=== PATIENT | female | born 1965 | race Caucasian/White ===

== ENCOUNTER 2016-11-04 17:15 | Emergency (ER) | payer MEDICAID ==
[~2016-11-04] VITALS: Ht 162.6 cm; Wt 75.0 kg
[~2016-11-04 17:15] MED LIST: AMO500 PO; GABA300C16 PO
[2016-11-04 19:01] VITALS: Ht 162.6 cm; Wt 75.0 kg
[2016-11-04] MEDS ORDERED: HYDR-906 PO (19:22)
[2016-11-04] MEDS ORDERED: IBUP-1542 PO (19:22)
--- NOTE | 2016-11-04 19:28 | ERD ---
ER Documentation Chief Complaint Date/Time DATE: 11/04/16 TIME: 19:25 Chief Complaint left breast lump/swelling pain x 2 days. HPI 31 year female presents here in emergency department for complaints of left breast pain and mass that she noticed yesterday. Patient describes the pain as throbbing pain, 6/10 scale worst upon touching the area. Patient denies any redness. Patient denies any nipple discharge. Patient denies any deformity in the breast area. Patient denies any fever or chills. Patient denies any trauma on the breast area. ROS All systems reviewed and are negative except as per history of present illness. Medications Home Meds Active Scripts Ibuprofen* (Motrin*) 600 Mg Tab, 600 MG PO Q6H Y for PAIN AND OR ELEVATED TEMP, #30 TAB Prov:ZION KOCH COMPENSATION CONSULTANT 11/04/16 Hydrocodone/Acetaminophen ([place] 5-325 Tablet) 1 Each Tablet, 1 TAB PO Q6H Y for SEVERE PAIN LEVEL 7-10, #20 TAB Prov:ZION KOCH COMPENSATION CONSULTANT 11/04/16 Amoxicillin* (Amoxicillin*) 500 Mg Cap, 500 MG PO TID for 10 Days, CAP Prov:JACQUELYN ROCHE DO 05/25/16 Gabapentin* (Gabapentin*) 300 Mg Capsule, 300 MG PO BID, #20 CAP Prov:BENTLEY SALDIVAR PA-C 03/07/15 Allergies Allergies: Coded Allergies: No Known Allergy (Unverified , 03/07/15) PMhx/Soc History of Surgery: Yes (TUBULIGATION) Anesthesia Reaction: No Hx Neurological Disorder: No Hx Respiratory Disorders: No Hx Cardiac Disorders: No Hx Psychiatric Problems: No Hx Miscellaneous Medical Probl: No Hx Alcohol Use: No Hx Substance Use: No Hx Tobacco Use: No FmHx Family History: No coronary disease, No diabetes, No other Physical Exam Vitals Vital Signs Date Time Temp Pulse Resp B/P Pulse Ox O2 Delivery O2 Flow Rate FiO2 11/04/16 19:01 98.9 81 20 110/71 97 Physical Exam GENERAL: The patient is well developed and appropriate for usual state of health, in no apparent distress. CHEST: Clear to auscultation bilaterally. There are no rales, wheezes or rhonchi. Noted left breast mass, on the left upper and lower quadrant, 5 cm x 6 cm, tender on palpation, no erythema, no nipple discharge noted in the left breast. No deformity. Right breast is normal, no palpable masses noted. Nontender on Palpation. HEART: Regular rate and rhythm. No murmurs, clicks, rubs or gallops. No S3 or S4. ABDOMEN: Soft, nontender and nondistended. Good bowel sounds. No rebound or guarding. No gross peritonitis. No gross organomegaly or masses. No Henao sign or McBurney point tenderness. BACK: No midline or flank tenderness. EXTREMITIES: Equal pulses bilaterally. There is no peripheral clubbing, cyanosis or edema. No focal swelling or erythema. Full range of motion. Grossly neurovascularly intact. NEURO: Alert and oriented. Cranial nerves 2-12 intact. Motor strength in all 4 extremities with 5/5 strength. Sensation grossly intact. Normal speech and gait. SKIN: There is no apparent rash or petechia. The skin is warm and dry. HEMATOLOGIC AND LYMPHATIC: There is no evidence of excessive bruising or lymphedema. No gross cervical, axillary, or inguinal lymphadenopathy. Procedures/MDM Medical decision making: Patient's left breast pain and mass nonspecific at this time, further evaluation by a mammogram for an ultrasound is necessary to be done outpatient, this time, no symptoms of any infection, and symptoms of any soft tissue abscess, no redness, no swelling, no fever, no nipple discharge noted. A gynecology specialist for further evaluation of the breast mass. Patient was given pain medication, ibuprofen and [place] tablet symptoms, is advised to follow-up with primary care doctor within the next 2-3 days and gynecology specialist for further evaluation of symptoms. Patient was advised to return to emergency department for any symptoms of infection, redness, discharge from the nipple, high fever, any other worsening symptoms. Departure Diagnosis: Primary Impression: Breast mass, left Condition: Stable Patient Instructions: Breast Mass, Uncertain Cause Referrals: [facility] Usted se mccracken hecho un examen mdico de control que le indica que no est en james condicin que requiera tratamiento urgente en el Departamento de Emergencia. Un estudio ms profundo y el tratamiento de ledesma condicin pueden esperar sin ningn riesgo hasta que usted sea atendida/o en el consultorio de ledesma mdico o james cl clinton. Es responsabilidad suya arreglar james demar para el seguimiento del claribel. MANEJO DE CONDICIONES NO URGENTES EN EL FUTURO 1) Si usted tiene un mdico de atencin primaria: Usted debera llamar a ledesma mdico de atencin primaria antes de venir al departamento de emergencia. Despus de las horas de consultorio, ledesma doctor o ledesma asociado/a est disponible por telfono. El mdico o enfermero de alexia en el servicio telefnico puede asesorarle por jakob medio para atender el problema, o claribel contrario se puede programar james demar. 2) Si usted no tiene un mdico de atencin primaria: Llame al mdico o clnica de referencia que aparece abajo sin las horas de consultorio para hacer james demar para que le vean. CLINICAS: [facility] [phone] [facility] [phone] [address] [facility] [phone] [address] [facility] [phone] [address] [facility] [place] [id number] [phone] [facility]. [phone] [facility] () Usted se mccracken hecho un examen mdico de control que le indica que no est en james condicin que requiera tratamiento urgente en el Departamento de Emergencia. Un estudio ms profundo y el tratamiento de ledesma condicin pueden esperar sin ningn riesgo hasta que usted sea atendida/o en el consultorio de ledesma mdico o james cl clinton. Es responsabilidad suya arreglar james demar para el seguimiento del claribel. MANEJO DE CONDICIONES NO URGENTES EN EL FUTURO 1) Si usted tiene un mdico de atencin primaria: Usted debera llamar a ledesma mdico de atencin primaria antes de venir al departamento de emergencia. Despus de las horas de consultorio, ledesma doctor o ledesma asociado/a est disponible por telfono. El mdico o enfermero de alexia en el servicio telefnico puede asesorarle por jakob medio para atender el problema, o claribel contrario se puede programar james demar. 2) Si usted no tiene un mdico de atencin primaria: Llame al mdico o condado institucions de referencia que aparece abajo sin las horas de consultorio para hacer james demar para que le vean. SI USTED NO PUEDE PAGAR PARA DES UN MEDICO puede ir a: [facility] [address] [place] [address] [facility] [address] [place] [address] [facility] [address] [place] [address] [facility] [address] [place], [place] [phone] EMERGENCY DEPARTMENT PHYSIC[place] [address] [facility] [address] [place], [place] [phone] OFFICE FAX JAVIER ERICKSON [address] [place], [place] [phone] DR. HDEZ MINOT [address] [place], [place] [phone] ALICIA POSADAS [address] [facility], [address] [address] [address]DE[address] [address] [place], [place] [phone] [facility] [address] [place], [place] [address] [address] [facility] [phone] - JORGE HIGGINS [address], [facility] [phone] BROUSSARD, [place] [address] [facility]. [address], [facility] [phone] DR KHAN, F[place] [address] [place], [place] [phone] ZION KOCH NP Nov 04, 2016 19:28
== END 2016-11-04 19:25 | disposition home or self-care (01) ==
LOC: E/R 17:15
DX: N63 Unspecified lump in breast (principal)
CPT/HCPCS: 99283

== ENCOUNTER 2017-10-25 05:41 | Emergency (ER) | END 2017-10-25 07:13 | disposition home or self-care (01) ==

== ENCOUNTER 2018-09-03 09:14 | Emergency (ER) | END 2018-09-03 15:05 | disposition home or self-care (01) ==

== ENCOUNTER 2019-01-24 17:49 | Emergency (ER) | payer MEDICAID ==
[~2019-01-24] VITALS: Wt 76.5 kg
[~2019-01-24 17:49] MED LIST changes: +ALBU18HF INHALATION; -AMO500 PO; +AMOX500C2 PO; +CEPH-443 PO; +CETI10CA PO; +FLUT9.9S NASAL; +HYDR-4011 PO; +IBUP-1542 PO; +NAPR-985 PO; +PRED20TA PO; +TRAM50TA2 PO
[2019-01-24] MEDS ORDERED: KETOROLAC 30 MG INJ IM STA (19:36)
[2019-01-24] MEDS ORDERED: IBUP-1542 PO (19:56)
--- NOTE | 2019-01-24 20:05 | ERD ---
ER Documentation Chief Complaint Chief Complaint r. ankle pain and swelling progressing in severity x2 wks, denies trauma HPI 53-year-old female who presents with complaint of right ankle Achilles tendon pain over the past 2 weeks. She denies any history of fall or trauma. States pain began abruptly approximately 2 weeks ago after waking up from sleep. Denies any history of osteo-arthritis or rheumatoid arthritis. Has had difficulty placing weight on left foot with difficulty ambulating Had some swelling at pain to the right Achilles tendon. She otherwise without complaint. Denies recent antibiotic use. Not tried any medications to help with pain at home. ROS All systems reviewed and are negative except as per history of present illness. Medications Home Meds Active Scripts Ibuprofen* (Motrin*) 600 Mg Tab, 600 MG PO Q6, #30 TAB Prov:STEVE RIVERA PA-C 01/24/19 Cephalexin* (Keflex*) 500 Mg Capsule, 500 MG PO QID for 7 Days, CAP Prov:SUKHWINDER MATTSON PA-C 09/03/18 Naproxen* (Naprosyn*) 500 Mg Tablet, 500 MG PO BID PRN for PAIN AND/OR INFLAMMATION, #30 TAB Prov:SUKHWINDER MATTSON PA-C 09/03/18 Tramadol HCl (Tramadol HCl) 50 Mg Tablet, 50 MG PO Q6 PRN for PAIN, #12 TAB Prov:SUKHWINDER MATTSON PA-C 09/03/18 Fluticasone Propionate (Flonase Allergy Relief) 9.9 Ml [place].susp, 1 SPRAY NASAL BID, #1 BOTTLE TO EACH NOSTRIL Prov:BENTLEY SALDIVAR PA-C 10/25/17 Cetirizine Hcl* (Zyrtec*) 10 Mg Capsule, 10 MG PO DAILY, #30 TAB.CHEW Prov:BENTLEY SALDIVAR PA-C 10/25/17 Albuterol Sulfate* (Ventolin HFA*) 18 Gm Hfa.aer.ad, 2 PUFF INHALATION Q4H, #1 INHALER Prov:BENTLEY SALDIVAR PA-C 10/25/17 Prednisone* (Prednisone*) 20 Mg Tab, 40 MG PO DAILY for 5 Days, TAB Prov:BENTLEY SALDIVAR PA-C 10/25/17 Ibuprofen* (Motrin*) 600 Mg Tab, 600 MG PO Q6H PRN for PAIN AND OR ELEVATED TEMP, #30 TAB Prov:JIMBOLUISZION CHIEF JUVENILE PROBATION OFFICER 11/04/16 Hydrocodone/Acetaminophen ([place] 5-325 Tablet) 1 Each Tablet, 1 TAB PO Q6H PRN for SEVERE PAIN LEVEL 7-10, #20 TAB Prov:ZION KOCH [place] Gerardo CHIEF JUVENILE PROBATION OFFICER 11/04/16 Amoxicillin* (Amoxicillin*) 500 Mg Cap, 500 MG PO TID for 10 Days, CAP Prov:JACQUELYN ROCHE DO 05/25/16 Gabapentin* (Gabapentin*) 300 Mg Capsule, 300 MG PO BID, #20 CAP Prov:BENTLEY SALDIVAR PA-C 03/07/15 Allergies Allergies: Coded Allergies: No Known Allergy (Unverified , 01/24/19) PMhx/Soc History of Surgery: Yes (TUBULIGATION) Anesthesia Reaction: No Hx Neurological Disorder: No Hx Respiratory Disorders: No Hx Cardiac Disorders: No Hx Psychiatric Problems: No Hx Miscellaneous Medical Probl: No Hx Alcohol Use: No Hx Substance Use: No Hx Tobacco Use: No Smoking Status: Never smoker Physical Exam Vitals Vital Signs Date Temp Pulse Resp B/P (MAP) Pulse Ox O2 O2 Flow FiO2 Time Delivery Rate 01/24/19 98.7 79 20 132/79 97 17:55 (96) Physical Exam Const: No acute distress Head: Atraumatic Eyes: Normal Conjunctiva ENT: Normal External Ears, Nose and Mouth. Neck: Full range of motion. No meningismus. Resp: Clear to auscultation bilaterally Cardio: Regular rate and rhythm, no murmurs Abd: Soft, non tender, non distended. Normal bowel sounds Skin: No petechiae or rashes Back: No midline or flank tenderness Ext: Right Achilles's tendon tender to palpation but intact, no surrounding erythema, mild swelling at the site of right Achilles tendon, able to plantar and dorsiflex, right ankle with full range of motion, no concerning lesions Neur: Awake and alert Psych: Normal Mood and Affect Results 24 hrs Current Medications Medications Dose Sig/Lucinda Start Time Status Last (Trade) Ordered Route PRN Stop Time Admin Dose Reason Admin Ketorolac 30 mg ONCE STAT 01/24/19 DC 01/24/19 Tromethamine IM 19:36 19:53 (Toradol) 01/24/19 19:45 Procedures/MDM 53-year-old female presents with right Achilles tendon pain and tenderness. Achilles tendon appears intact. Her symptoms may be secondary to tendinitis of the right Achilles tendon. I have low suspicion for Achilles tendon rupture given physical exam findings and history. She denies any trauma or fall. Advised patient she may need further evaluation by specialist and/or additional imaging. Will discharge with NSAIDs, PMD follow-up, strict return precautions explained. DISPOSITION PLAN: We discussed follow up with the patient's primary care doctor within 24 to 48 hours. Patient counseled regarding my diagnostic impression and care plan. Prior to discharge all questions answered. Pt agrees with treatment plan and understands strict return precautions. Precautionary instructions provided including instructions to return to the ER if not improving or for any worsening or changing symptoms or concerns. Disclaimer: Inadvertent spelling and grammatical errors are likely due to EHR/dictation software use and do not reflect on the overall quality of patient care. Also, please note that the electronic time recorded on this note does not necessarily reflect the actual time of the patient encounter. Departure Diagnosis: Primary Impression: Ankle pain Additional Impression: Tendonitis, Achilles, right Condition: Stable Patient Instructions: Tendonitis Referrals: [facility] CL[facility]ICS YOU HAVE RECEIVED A MEDICAL SCREENING EXAM AND THE RESULTS INDICATE THAT YOU DO NOT HAVE A CONDITION THAT REQUIRES URGENT TREATMENT IN THE EMERGENCY DEPARTMENT. FURTHER EVALUATION AND TREATMENT OF YOUR CONDITION CAN WAIT UNTIL YOU ARE SEEN IN YOUR DOCTORS OFFICE WITHIN THE NEXT 1-2 DAYS. IT IS YOUR RESPONSIBILITY TO MAKE AN APPOINTMENT FOR FOLOW-UP CARE. IF YOU HAVE A PRIMARY DOCTOR --you should call your primary doctor and schedule an appointment IF YOU DO NOT HAVE A PRIMARY DOCTOR YOU CAN CALL OUR PHYSICIAN REFERRAL HOTLINE AT IF YOU CAN NOT AFFORD TO SEE A PHYSICIAN YOU CAN CHOSE FROM THE FOLLOWING [facility] CLINICS [facility] [address] [facility] [address] [facility] [address] [facility] [address] [facility] [address] [facility]. [facility]. [address] Additional Instructions: Call your primary care doctor TOMORROW for an appointment during the next 2-3 days.See the doctor sooner or return here if your condition worsens before your appointment time. Follow-up with your PMD as you may require referral to a specialist and or a dditional imaging if your symptoms do not improve. STEVE RIVERA PA-C Jan 24, 2019 20:05
[2019-01-24] MEDS ORDERED: NAPR-985 PO (21:09)
[2019-01-24 21:19] VITALS: BP 102/78; PULSE 68; RESP 19
== END 2019-01-24 21:21 | disposition home or self-care (01) ==
LOC: FTE 17:49
DX: M76.61 Achilles tendinitis, right leg (principal)
CPT/HCPCS: 73610; J1885; 96372